=== PATIENT | female | born 1970 | race Caucasian/White ===

== ENCOUNTER 2020-07-13 06:28 | Inpatient (IN) ==
[~2020-07-13 06:28] MED LIST: Ringers Solution, Lactated 1,000 ML IVC SCH
[2020-07-13] MEDS ORDERED: *HR* Midazolam HCl 2 MG/2 ML VIAL ONE (06:44)
[2020-07-13] MEDS ORDERED: *HR* FentaNYL (PF) 100 MCG/2 ML VIAL ONE (06:44)
[2020-07-13] MEDS ORDERED: *HR* Propofol 200 MG/20 ML VIAL IVP ONE (06:44)
[2020-07-13] MEDS ORDERED: Lidocaine -MPF 2% 2 ML VIAL ONE (06:45)
[2020-07-13] MEDS ORDERED: Ondansetron 4 MG/2 ML VIAL ONE (06:45)
[2020-07-13] MEDS ORDERED: *HR* Succinylcholine 200 MG/10 ML VIAL IVP ONE (06:45)
[2020-07-13] MEDS ORDERED: *HR* Rocuronium Bromide 50 MG/5 ML VIAL ONE ×2 (06:45→08:48)
[2020-07-13] MEDS ORDERED: Ondansetron 4 MG/2 ML VIAL IVP PRN ×2 (07:00→11:56)
[2020-07-13] MEDS ORDERED: *HR* HYDROcodone/Acet 5/325 mg TABLET PO PRN (07:00)
[2020-07-13] MEDS ORDERED: CeFAZolin Syr 3,000MG/30 ML 3,000 MG/30 ML SYRINGE IVPB ONE (07:16)
[2020-07-13] MEDS ORDERED: Lidocaine HCL 4 ML Topical Solution (Laryng-O-Jet Kit Sterile Pak) TP ONE (07:47)
[2020-07-13] MEDS ORDERED: Acetaminophen IV 1,000 MG/100 ML BAG IVPB ONE (07:50)
[2020-07-13] MEDS ORDERED: *HR* Magnesium Sulfate 1 GM/2 ML VIAL ONE (08:38)
[2020-07-13] MEDS ORDERED: Dexmedetomidine HCl 400 MCG/100 ML MLS IVC ONE (08:49)
[2020-07-13] MEDS ORDERED: EPHEDrine 50 MG/ML VIAL ONE (09:31)
[2020-07-13] MEDS ORDERED: *HR* HYDROMORPHONE 2 MG/ML VIAL ONE (10:20)
[2020-07-13] MEDS ORDERED: Sugammadex Sodium 200 MG/2 ML VIAL IV ONE (10:25)
[2020-07-13] MEDS ORDERED: Ketorolac 30 MG/ML VIAL ONE (10:33)
[2020-07-13] MEDS: *HR* HYDROmorphone PF 0.5 MG/0.5 ML SYRINGE IVP PRN ×4 (11:03→11:25)
[2020-07-13] MEDS ORDERED: Ringers Solution, Lactated 1,000 ML IVC SCH (11:56)
[2020-07-13] MEDS ORDERED: Naloxone 0.4 MG/ML INJ IVP PRN (11:56)
[2020-07-13] MEDS: *HR* HYDROcodone/Acet 5/325 mg TABLET PO PRN (16:12)
[2020-07-13] MEDS ORDERED: Acetaminophen/Butalbital/CaffeineTABLET PO PRN (18:22)
[2020-07-14 06:54] LABS: Basophils % 0.2 %; Eosinophils % 0.5 %; Hematocrit 36.7 % (35.3-44.9); Hemoglobin 11.7 g/dL (11.5-15.4); Immature Granulocytes % 0.3 % (0-4); Lymphocytes % 16.2 %; Mean Corpuscular HGB Conc 31.9 g/dL (31.6-35.5); Mean Corpuscular Hemoglobin 33.3 pg (28.0-33.3); Mean Corpuscular Volume 104.6 fL (83.0-100.0); Mean Platelet Volume 9.7 fL (9.4-12.4); Monocytes # 0.4 K/mcL (0.0-1.3); Monocytes % 6.7 %; Neutrophils # 4.8 K/mcL (1.6-8.9); Platelet Count 237 K/mcL (140-400); Red Blood Count 3.51 M/mcL (3.82-4.97); Red Cell Distribution Width 15.3 % (11.5-14.5); Segmented Neutrophils % 76.1 %; White Blood Count 6.2 K/mcL (4.3-11.1)
[2020-07-14 07:57] VITALS: BP 112/75
[2020-07-14] MEDS: *HR* HYDROcodone/Acet 5/325 mg TABLET PO PRN (08:57)
[2020-07-14] MEDS ORDERED: lisinopriL 20 MG TABLET PO SCH (09:00)
[2020-07-14] MEDS ORDERED: BuPROPion XL (24 HR) 150 MG TABLET PO SCH (09:00)
== END 2020-07-14 17:50 | disposition home or self-care (01) | DRG 742 ==
LOC: SAMDAY 06:28 → 1NENUOBS 11:34
PROVIDERS: ADMIT Obstetrics & Gynecology; ATTEND Obstetrics & Gynecology